=== PATIENT | female | born 1945 | race Caucasian/White ===

== ENCOUNTER 2016-05-06 09:06 | Emergency (ER) | payer OTHER ==
--- NOTE | 2016-05-06 11:42 | DIAGNOSTIC IMAGING REPORT ---
PROCEDURE: XR CHEST 2 VIEW INDICATION: COUGH TECHNIQUE: Two views. COMPARISON: None. FINDINGS: The cardiomediastinal contour and central vasculature are within normal limits. The lungs are clear without focal consolidation, pleural effusion, or pneumothorax. The visualized osseous structures are intact. IMPRESSION: 1. Normal chest.
--- NOTE | 2016-05-06 13:41 | DIAGNOSTIC IMAGING REPORT ---
PROCEDURE: CTA THORAX WITH CONTRAST INDICATION: HEMOPTYSIS, FATIGUE TECHNIQUE: 76 ml of Isovue 370 was injected intravenously and axial images were obtained of the chest with 3D sagittal and coronal MIP reconstructions. COMPARISON: CT abdomen 11/23/2013 and ultrasound 06/19/2014 FINDINGS: Normal opacification of the pulmonary arterial tree without filling defect. The central pulmonary arteries are normal caliber. Thoracic aorta is normal caliber with trace atherosclerotic calcification. The great vessels demonstrates normal branching pattern. Heart size is normal. No pericardial effusion. No adenopathy or mediastinal masses. The esophagus is normal in caliber without hiatal hernia. The airway is patent and branches normally. There is a very minor patchy ground-glass alveolar opacity right upper lobe. The left lateral herve fissural granuloma. Mild bibasilar atelectasis. No pleural effusions or pneumothorax. Osseous structures are intact. The images obtained of the upper abdomen demonstrate innumerable, tiny hypodensities throughout the liver, chronic. Coarse parenchymal right renal calcification and small bilateral renal cysts. IMPRESSION: 1. No pulmonary embolus. 2. Scattered, tiny, subtle alveolar opacities in the right upper lobe likely infectious or inflammatory, possibly accounting for the patient's hemoptysis. Lungs are otherwise fairly clear. 3. Chronic hepatic cystic structures. 4. Discussed with Dr. Goddard in the emergency room.
--- NOTE | 2016-05-06 14:25 | ED CLINICAL REPORT ---
Clinical Report - Physicians/[facility] [address] [place] [address] 05/06/2016 9:06 Patient: SAYRA TORRES Time Seen: 09:52. Arrived- By private vehicle. Historian- patient. HISTORY OF PRESENT ILLNESS Chief Complaint: COUGH. fatigue, hemoptysis. This started about 2 months ago (fatigue), hemoptysis (this morning) and is still present (a little better (hemoptysis)). The illness is described as moderate. The patient has had a cough. She has had moderate amounts of frankly bloody sputum. No difficulty breathing, chest discomfort or pain, fever or muscle aches. No chills, sore throat, hoarseness or nasal congestion or discharge. No sinus pressure, sinus drainage or ear pain. Additional history - No known contact with a sick individual. (Pt states she has felt deeply tired for the past couple of months. This morning, pt states she felt the sensation of fluid being in her throat. She coughed it up, and states she saw a "large amount" of blood.). Similar symptoms previously: None. Recent medical care: Not recently seen/assessed. REVIEW OF SYSTEMS No headache, eye discomfort, nausea, vomiting or diarrhea. No abdominal pain, hay fever, pedal edema, calf pain or difficulty with urination. No skin rash, enlarged lymph nodes or joint pain. All systems otherwise negative, except as recorded above. PAST HISTORY No h/o hypothyroidism. Problems: Ureterolithiasis. LNMP - Last Normal Menstrual Period. Tetanus Status. Immunizations. Additional Surgeries: Appendectomy. Hysterectomy. Laparotomy. Medications: None. Allergies: Penicillin. Sulfa Antibiotics. SOCIAL HISTORY Smoker- current status unknown. Occasional alcohol use. No drug use. ADDITIONAL NOTES The nursing notes have been reviewed. PHYSICAL EXAM Vital Signs: 05/06/2016 09:28 BP: 157/65. HR: 86. RR: 12. O2 saturation: 100%. Temp: 98 F. Pain level now: 0/10. Have been reviewed. Appearance: Alert. No acute distress. Eyes: Pupils equal, round and reactive to light. Eyes normal inspection. ENT: Nose normal. Pharynx normal. Uvula midline. Neck: Normal inspection. Neck supple. CVS: Normal heart rate and rhythm. Heart sounds normal. Pulses normal. Respiratory: No respiratory distress. Breath sounds normal. (Pt coughs up a mild amount of frankly bloody sputum.). Abdomen: Soft and nontender. Back: Normal inspection. Skin: Skin warm and dry. Normal skin color. No rash. Normal skin turgor. Extremities: Extremities exhibit normal ROM. No lower extremity edema. Neuro: Oriented X 3. No motor deficit. No sensory deficit. LABS, X-RAYS, AND EKG Chest X-ray: No acute disease. Normal lung markings present. Normal heart size. Mediastinum normal. Great vessels normal. Soft tissues normal. No infiltrate. No fracture. No bony lesion present. Views: PA and lateral. Technique: good. The X-rays were independently viewed by me, interpreted by the radiologist and contemporaneously by me and discussed with the radiologist. Prior films were not available for comparison. Chest CT: Lungs normal. Great vessels normal. Mediastinum normal. No fractures noted. Chest CT performed with contrast. The study was independently viewed by me, interpreted by the radiologist and contemporaneously by me and discussed with the radiologist. Prior studies were not available for comparison. Laboratory Tests: UA-Culture if indicated: (PARAM: 05/06/2016 09:30) ( [facility] 05/06/2016 11:06) IP Test Result Flag Units (Reference) URINE COLOR YELLOW URINE APPEARANCE CLEAR URINE GLUCOSE NEGATIVE (NEGATIVE) URINE BILIRUBIN NEGATIVE (NEGATIVE) URINE KETONE NEGATIVE (NEGATIVE) URINE SPECIFIC GRAVITY 1.025 (1.010-1.030) URINE PH 5.5 (5.0-8.0) URINE PROTEIN NEGATIVE (NEGATIVE) URINE UROBILINOGEN 0.2 EU/dL (0.2-1.0) URINE NITRITE NEGATIVE (NEGATIVE) URINE BLOOD 1+ (NEGATIVE) URINE LEUK ESTERASE NEGATIVE (NEGATIVE) CBC w Diff: (PARAM: 05/06/2016 10:40) ( [facility] 05/06/2016 10:53) Final results Test Result Flag Units (Reference) WHITE BLOOD COUNT 5.2 K/uL (4.5-11.5) RED BLOOD COUNT 4.37 M/uL (4.00-5.20) HEMOGLOBIN 14.0 gm/dL (12.0-16.0) HEMATOCRIT 41.3 % (36.0-46.0) MEAN CELL VOLUME 95 fL (80-100) MEAN CORPUSCULAR HGB 32 pg (26-34) MEAN CORPUSCULAR HGB CONC 34 g/dL (31-37) RED CELL DISTRIBUTION WIDTH 12.6 % (11.6-14.8) PLATELET COUNT 169 K/uL (150-400) NEUTROPHIL % 64.2 % (50-75) LYMPH % 27.3 % (25-40) MONO % 7.1 % (3-14) EOSINOPHIL % 1.0 % (0-4) BASOPHIL % 0.4 % (0-2) PT with INR: (PARAM: 05/06/2016 10:40) ( [facility] 05/06/2016 11:06) Final results Test Result Flag Units (Reference) INR 1.0 (0.8-1.2) Low Intensity Therapy: INR 1.5-2.0 PT range 18.5-23.1Mod.Intensity Therapy: INR 2.0-3.0 PT range 23.1-31.5High Intensity Therapy: INR 2.5-3.5 PT range 27.4-35.5High Intensity Therapy 2: INR 3.0-4.0 PT range 31.5-39.3 D-DIMER QUANTITATIVE 0.45 ug/mLFEU (0.27-0.52) The primary value of this quantitative assay relates toits negative predictive value (i.e. exclusion) of pulmonaryembolism/deep vein thrombosis/DIC.Elevated levels of d-dimer may also occur with:, age, cancer, inflammation, liver disease,post-op, infection, hematoma, coronary disease, peripheralarteriopathy, bleeding disorders and thrombolytic treatment.Results should be correlated with other clinical andradiological data.Testing Methodology: Latex Immunoassay BNP: (PARAM: 05/06/2016 10:40) ( [facility] 05/06/2016 11:13) Final results Test Result Flag Units (Reference) B-TYPE NATRIURETIC PEPTIDE 30.1 pg/ml (5-100) CMP: (PARAM: 05/06/2016 10:40) ( MsgRcvd 05/06/2016 11:23) Final results Test Result Flag Units (Reference) GLUCOSE 102 mg/dL (70-110) BUN 20 H mg/dL (7-18) CREATININE 0.8 mg/dL (0.6-1.3) Estimated GFR >60 mL/min Estimated GFR- >60 mL/min Note: Persistent reduction over 3 months in eGFR<60 mL/min/1.73 m2 defines CKD. Patients with eGFR values>=60 mL/min/1.73 m2 may also have CKD if evidence ofpersistent proteinuria. Additional information may be foundat www.kidney.org. SODIUM 146 H mmol/L (136-145) POTASSIUM 3.5 mmol/L (3.5-5.1) CHLORIDE 107 mmol/L (98-107) CARBON DIOXIDE 28 mmol/L (21-32) CALCIUM 8.8 mg/dL (8.5-10.1) TOTAL PROTEIN 6.7 g/dL (6.4-8.2) ALBUMIN 3.8 g/dL (3.3-5.0) BILIRUBIN, TOTAL 0.6 mg/dL (0.0-1.0) ALKALINE PHOSPHATASE 107 U/L (46-116) AST (SGOT) 20 U/L (15-37) ALT (SGPT) 26 U/L (12-78) THYROID STIMULATING HORMONE 4.679 H uIU/mL (0.30-3.74) Type & Screen: (PARAM: 05/06/2016 10:40) ( MsgRcvd 05/06/2016 11:47) Final results Test Result Flag Units (Reference) PATIENT BLOOD TYPE O Positive Above is a corrected result. Previously reported on ( MsgRcvd 05/06/2016 11:21) as: PATIENT BLOOD TYPE O Positive ANTIBODY SCREEN NEGATIVE . Pulse Oximetry: 05/06/2016 09:28 O2 saturation: 100%. (FIO2 - room air). Interpretation: normal. PROGRESS AND PROCEDURES Course of Care: PT was given a 1 L bolus of NS. She was worked up for her fatigue and hemoptysis, and was found to have an elevated TSH. Imaging of the chest, including CXR and CT, was unremarkable. I did d/w pt that the cause of her hemoptysis is not known; however, no emergent condition has been identified. Patient counseled in person regarding the patient's stable condition, test results, diagnosis and need for follow-up. Concerns were addressed. Old medical records reviewed. Disposition: Discharged. Condition: stable. CLINICAL IMPRESSION Minor hemoptysis Acquired hypothyroidism without goiter. No myxedema coma. INSTRUCTIONS Drink plenty of fluids. Warnings: Further evaluation is necessary. GENERAL WARNINGS: Return or contact your physician immediately if your condition worsens or changes unexpectedly, if not improving as expected, or if other problems arise. Prescription Medications: Synthroid 125 mcg: take 1 orally every 24 hours. Dispense thirty (30). No refills. Substitution is permissible. Follow-up: Follow up with your doctor. Call for the next available appointment. Reason for referral: Follow up low thyroid and coughing up blood. Understanding of the discharge instructions verbalized by patient. (Electronically signed by Nahomy Goddard MD 05/09/2016 10:19)
--- NOTE | 2016-05-06 14:25 | ED ORDER SUMMARY ---
..... Patient: SAYRA TORRES OrderSheet [facility] VisitID: [id number] [address] [place] [address] 71y, F Registration Date/Time: 05/06/2016 ORDER SHEET Weight: 58.9 kg (stated) Allergies: Penicillin, Sulfa Antibiotics GENERAL ORDERS: Chest 2V Urgent (09:52 05/06/2016 Kyara PACE) (Ack 9:55 Maxim) (12:24 MWinterer R.N.) CBC w Diff Urgent (10:17 05/06/2016 Kyara PACE) (Ack 10:26 Maxim) (10:45 MWinterer R.N.) CMP Urgent (10:05/06/2016 Kyara PACE) (Ack 10:26 Maxim) (10:45 MWinterer R.N.) PT with INR Urgent (10:05/06/2016 Kyara PACE) (Ack 10:26 Maxim) (10:45 MWinterer R.N.) BNP Urgent (10:17 05/06/2016 Kyara PACE) (Ack 10:26 Maxim) (10:45 MWinterer R.N.) D-Dimer Urgent (10:05/06/2016 Kyara PACE) (Ack 10:26 Maxim) (10:45 MWinterer R.N.) Type & Screen Urgent (10:05/06/2016 Kyara PACE) (Ack 10:26 Maxim) (10:45 MWinterer R.N.) TSH Urgent (10:05/06/2016 Kyara PACE) (Ack 10:26 Maxim) (10:45 MWinterer R.N.) UA-Culture if indicated Urgent (10:47 05/06/2016 MWinterer R.N. per protocol) (10:47 MWinterer R.N.) CTA Thorax w Cont (No) (N/A) Urgent (12:02 05/06/2016 Kyraa PACE) (Ack 12:35 Maxim) (13:05 MWinterer R.N.) MEDICATION ORDERS: IV FLUIDS: IV NS : initial bolus 1000 mL (1000 mL/hr), then none - (NOW) (10:16 05/06/2016 Kyara PACE) (Ack 10:26 MWinterer R.N.) (10:46 MWintercamron R.N.) ORDER SHEET NOTES: [Electronically signed by Khadra Faust R.N. (08:54 05/08/2016)] [Electronically signed by Nahomy Goddard MD (10:19 05/09/2016)] [Electronically locked/signed by Khadra Faust R.N. (08:54 05/08/2016)]
--- NOTE | 2016-05-06 14:25 | ED ORDER SUMMARY ---
..... Patient: SAYRA TORRES OrderSheet [facility] VisitID: [id number] [address] [place] [address] 71y, F Registration Date/Time: 05/06/2016 ORDER SHEET Weight: 58.9 kg (stated) Allergies: Penicillin, Sulfa Antibiotics GENERAL ORDERS: Chest 2V Urgent (09:52 05/06/2016 Kyara PACE) (Ack 9:55 Maxim) (12:24 MWinterer R.N.) CBC w Diff Urgent (10:17 05/06/2016 Kyara PACE) (Ack 10:26 Maxim) (10:45 MWinterer R.N.) CMP Urgent (10:05/06/2016 Kyara PACE) (Ack 10:26 Maxim) (10:45 MWinterer R.N.) PT with INR Urgent (10:05/06/2016 Kyara PACE) (Ack 10:26 Maxim) (10:45 MWinterer R.N.) BNP Urgent (10:17 05/06/2016 Kyara PACE) (Ack 10:26 Maxim) (10:45 MWinterer R.N.) D-Dimer Urgent (10:05/06/2016 Kyara PACE) (Ack 10:26 Maxim) (10:45 MWinterer R.N.) Type & Screen Urgent (10:05/06/2016 Kyara PACE) (Ack 10:26 Maxim) (10:45 MWinterer R.N.) TSH Urgent (10:05/06/2016 Kyara PACE) (Ack 10:26 Maxim) (10:45 MWinterer R.N.) UA-Culture if indicated Urgent (10:47 05/06/2016 MWinterer R.N. per protocol) (10:47 MWinterer R.N.) CTA Thorax w Cont (No) (N/A) Urgent (12:02 05/06/2016 Kyara PACE) (Ack 12:35 Maxim) (13:05 MWinterer R.N.) MEDICATION ORDERS: IV FLUIDS: IV NS : initial bolus 1000 mL (1000 mL/hr), then none - (NOW) (10:16 05/06/2016 Kyara PACE) (Ack 10:26 MWinterer R.N.) (10:46 MWintercamron R.N.) ORDER SHEET NOTES: [Electronically signed by Khadra Faust R.N. (08:54 05/08/2016)] [Electronically signed by Nahomy Goddard MD (10:19 05/09/2016)] [Electronically locked/signed by Khadra Faust R.N. (08:54 05/08/2016)]
--- NOTE | 2016-05-06 14:25 | ED NURSING NOTES ---
Clinical Report - Nurses [facility] [address] [place] [address] 05/06/2016 9:06 Patient: SAYRA TORRES TRIAGE Acuity: LEVEL 4. Chief Complaint: COUGH. Alert. No acute distress. SEPSIS SCREEN: Sepsis Screen. Negative (no infection suspected/documented). --09:32 Dorie Forrest R.N. 09:28 05/06/16. BP: 157/65. HR: 86. RR: 12. O2 saturation: 100% on room air. Temp: 98 F (oral). Pain level now: 0/10. --09:32 Dorie Forrest R.N. Weight: 58.9 kg stated. Height/Length: 64 inches Per Patient. BMI: 22.3. --09:31 Dorie Forrest R.N. Medications None. --09:29 Dorie Forrest R.N. Allergies Penicillin. --09:29 Dorie Forrest R.N. Sulfa Antibiotics. --09:29 Dorie Forrest R.N. History Arrived by private vehicle. Historian: patient. Unaccompanied. Primary physician (Eufemia). This started just prior to arrival. ( Pt reports she has been "really tired for a month." She states this am she coughed up blood.). PAST MEDICAL HX: Immunizations: status is unknown. The patient has had a hysterectomy. SOCIAL HX: Smoker- current status unknown. Occasional alcohol use. No drug use. FALL RISK ASSESSMENT: Fall risk assessment completed. No fall risk identified. NUTRITIONAL RISK ASSESSMENT: The nutritional risk assessment revealed no deficiencies. FUNCTIONAL ASSESSMENT: Functional assessment: no impairments noted. LEARNING NEEDS ASSESSMENT: The learning needs assessment revealed no barriers. SKIN INTEGRITY ASSESSMENT: Skin integrity risk assessment completed. No skin integrity risk identified. --09:32 Dorie Forrest R.N. PROBLEMS: Ureterolithiasis. LNMP - Last Normal Menstrual Period. Cellulitis. Tetanus Status. Animal Bite. Last Tetanus. Immunizations. --09:30 Dorie Forrest R.N. ADDITIONAL SURGERIES: Appendectomy. Hysterectomy. Laparotomy. --09:30 Dorie Forrest R.N. Assessment GENERAL / NEURO / PSYCH: Alert. Oriented X 4. Appears in no acute distress. Patient appears calm and cooperative. RESPIRATORY: Respirations not labored. CVS: Capillary refill less than 2 seconds. GI / : Abdomen soft and nontender. SKIN: Mucous membranes are pink. Skin is warm and dry. --09:32 Dorie Forrest R.N. Interventions ID band on patient. To treatment room. --09:32 Dorie Forrest R.N. NURSING PROGRESS NOTES 09:33 05/06/16. Patient gowned. Two patient identifiers checked. Call light placed in reach. Side rails up x 1. Bed placed in lowest position. Brakes of bed on. Patient ready for evaluation- chart flagged and ED physician notified. --09:33 Dorie Forrest R.N. 10:45 05/06/2016 Site #1 started via IV in the left upper arm with an 20g angiocath, with aseptic technique and good blood return; one attempt. Blood drawn: rainbow set. Labeled in the presence of the patient and sent to the lab. --10:45 Dorie Forrest R.N. 10:46 05/06/2016 Started bag #1 1000 mL IV Fluids IV NS (Saline); at 999 mL/hr over 1 hour(s) via site #1 via IV pump. Allergies verified and confirmed 5 rights. IV patency established. IV site checked: no pain, redness, or swelling. IV flushed thoroughly pre- and post-medication administration. --10:46 Dorie Forrest R.N. 11:48 05/06/2016 IV Fluids IV NS Discontinued: bag #1 completed. Total amount infused: 1000 mL. IV patency established IV site checked: no pain, redness, or swelling IV flushed thoroughly. --11:48 Janette Dubois R.N. 13:07 05/06/16. BP: 127/74. HR: 84. RR: 16. O2 saturation: 99% on room air. Pain level now: 0/10. --13:07 Winterer, Dorie, R.N. DISPOSITION / DISCHARGE Departure time: 14:38 May 06 2016. Condition at departure: improved and stable. No learning barriers present. Reviewed medication(s) side effects, precautions, dosing and course information. Prescription(s) given to the patient. Patient verbalized understanding. Written instructions provided in Azerbaijani. The patient was discharged by the physician. She was discharged home. She left the Emergency Department ambulatory and via private vehicle. Patient driving. --14:39 Dorie Forrest R.N. 14:38 05/06/16. BP: 114/72. HR: 78. RR: 12. O2 saturation: 100%. Pain level now: 0/10. --14:39 Dorie Forrest R.N. Locked/Released at 05/08/2016 8:54 by Khadra Faust R.N.
--- NOTE | 2016-05-09 10:19 | ED MAR SUMMARY ---
..... Medication Administration Record [facility] [address] [place] [address] Patient: SAYRA TORRES Visit ID: [id number] 71y, F Weight: 58.9 kg Height/Length: 64 in BMI: 22.3 ALLERGIES: Sulfa Antibiotics, Penicillin Start 10:46 05/06/2016 Dorie Forrest RRia, Stop 11:48 05/06/2016 Janette Dubois RRia Medication Administered: IV NS (SALINE), Dose: IV Fluids over 1 hour(s), Rate: 999 mL/hr, Dispensed: 1000 mL bag, Site: #1 left upper arm. Medication Ordered: IV NS : initial bolus 1000 mL (1000 mL/hr), then none - (NOW).
--- NOTE | 2016-05-09 10:19 | ED MED RECONCILIATION SUMMARY ---
Patient: SAYRA TORRES Medication Reconciliation Report [facility] VisitID: [id number] [address] [place] [address] 71y, F Registration Date/Time: 05/06/2016 Weight: 58.9 kg Height/Length: 64 in. BMI: 22.3 ALLERGIES: Penicillin, Sulfa Antibiotics The patient's Home Medications are listed below: NONE. The source(s) of the original Home Medication information: Not obtained. The following Medications were given to the patient in the Emergency Department: IV NS IV Fluids bolus 0, then 999 mL/hr, administered: 05/06/2016 10:46:00 AM The following Medications were prescribed to the patient: Synthroid 125 mcg: take 1 orally every 24 hours. Dispense thirty (30). No refills. Substitution is permissible. -- Nahomy Goddard MD
--- NOTE | 2016-05-09 10:19 | ED DISCHARGE INSTRUCTIONS ---
Patient: SAYRA TORRES General Instructions [facility] VisitID: [id number] [address] [place] [address] 71y, F Registration Date/Time: 05/06/2016 Minor hemoptysis Acquired hypothyroidism without goiter. No myxedema coma. INSTRUCTIONS Drink plenty of fluids. Warnings: Further evaluation is necessary. GENERAL WARNINGS: Return or contact your physician immediately if your condition worsens or changes unexpectedly, if not improving as expected, or if other problems arise. Prescription Medications: Synthroid 125 mcg: take 1 orally every 24 hours. Dispense thirty (30). No refills. Substitution is permissible. Follow-up: Follow up with your doctor. Call for the next available appointment. Reason for referral: Follow up low thyroid and coughing up blood. Understanding of the discharge instructions verbalized by patient. ADDITIONAL INFORMATION Hemoptysis Hemoptysis is the medical term for "coughing up blood". There are many causes for this including minor illnesses such as bronchitis. Hemoptysis can also be an early sign of more serious illnesses such as a pneumonia, blood clot in the lung, cancer, tuberculosis and pneumonia. Less common causes of hemoptysis can be hard to diagnose in an emergency department or a clinic. Therefore, further testing will be needed if the symptoms continue. Home Care: Avoid exposure to cigarette smoke. Smoke irritates the bronchial passages. Unless you are taking daily aspirin to prevent stroke or heart attack, avoid aspirin and products that contain aspirin. Aspirin affects the clotting system and may make hemoptysis worse. If you have a lung infection, extra fluid will help loosen secretions in the lungs. Qvzy-lxa-kpemghi cough medicines which contain "dextromethorphan" (such as Robitussin DM) may help reduce coughing. If you were prescribed an antibiotic, take it until it is all gone. Take it even if you are feeling better after only a few days. Follow Up with your doctor or as advised if the bloody cough continues for more than 24 hours. Get Prompt Medical Attention if any of the following occur: Coughing up more than 1 cup of blood within 24 hours Fever over 100.4F (38.0C) for more than three days Trouble breathing, wheezing or pain with breathing Chest pain or chest pressure Feeling very weak or fainting Hypothyroidism You have been diagnosed with hypothyroidism. This means your thyroid gland is not producing enough thyroid hormone. This hormone is important to body growth and metabolism. If you don't have enough, many body processes slow down, causing mental and physical sluggishness. A variety of other symptoms may occur and vary from mild to severe. The most severe form of this illness is called myxedema. Signs Of Hyperthyroidism (too much thyroid hormone, which can be a side effect of treatment for low thyroid): Restlessness, nervousness Increased appetite with weight loss Excess sweating Palpitations or irregular heartbeat Feeling overheated Signs Of Hypothyroidism (too little thyroid hormone): Fatigue or sluggishness Difficulty concentrating or thinking clearly; forgetfulness Dry skin, hair loss Depression Unexpected weight gain Feeling cold, or cold hands and/or feet Home Care: Take your medicine exactly as directed at the same time every day. Don't take thyroid pills with soy milk since this interferes with absorption. After taking your thyroid medicine: Wait 4 hours before eating or drinking anything that contains soy. Wait 4 hours before taking iron supplements, antacids that contain either calcium or aluminum hydroxide, or calcium supplements (regular amounts of cows milk are probably okay). Do not stop treatment on your own. If you do, your symptoms will return. Eat a high-fiber, low-calorie diet to relieve constipation and maintain a healthy weight. Get regular exercise. Talk to your doctor about an exercise program that is right for you. Follow Up with your doctor or as advised by our staff. Your thyroid level will need to be monitored for the rest of your life. During your routine visits, tell your doctor about any symptoms such as the ones listed below. Get Prompt Medical Attention if any of the following occur: Extreme fatigue Puffy hands, face, or feet Chest pain or trouble breathing Palpitations or irregular heartbeat Confusion or loss of consciousness You have been given the following additional information: Hemoptysis Hypothyroidism (Electronically signed by Nahomy Goddard MD 05/09/2016 10:19)
--- NOTE | 2016-05-09 10:19 | ED MAR SUMMARY ---
..... Medication Administration Record [facility] [address] [place] [address] Patient: SAYRA TORRES Visit ID: [id number] 71y, F Weight: 58.9 kg Height/Length: 64 in BMI: 22.3 ALLERGIES: Sulfa Antibiotics, Penicillin Start 10:46 05/06/2016 Dorie Forrest RRia, Stop 11:48 05/06/2016 Janette Dubois RRia Medication Administered: IV NS (SALINE), Dose: IV Fluids over 1 hour(s), Rate: 999 mL/hr, Dispensed: 1000 mL bag, Site: #1 left upper arm. Medication Ordered: IV NS : initial bolus 1000 mL (1000 mL/hr), then none - (NOW).
--- NOTE | 2016-05-09 10:19 | ED MED RECONCILIATION SUMMARY ---
Patient: SAYRA TORRES Medication Reconciliation Report [facility] VisitID: [id number] [address] [place] [address] 71y, F Registration Date/Time: 05/06/2016 Weight: 58.9 kg Height/Length: 64 in. BMI: 22.3 ALLERGIES: Penicillin, Sulfa Antibiotics The patient's Home Medications are listed below: NONE. The source(s) of the original Home Medication information: Not obtained. The following Medications were given to the patient in the Emergency Department: IV NS IV Fluids bolus 0, then 999 mL/hr, administered: 05/06/2016 10:46:00 AM The following Medications were prescribed to the patient: Synthroid 125 mcg: take 1 orally every 24 hours. Dispense thirty (30). No refills. Substitution is permissible. -- Nahomy Goddard MD
== END 2016-05-06 14:41 | disposition home or self-care (01) ==
LOC: ED SRH 09:06
DX: R04.2 Hemoptysis (principal); E03.9 Hypothyroidism, unspecified; Z88.0 Allergy status to penicillin; Z88.2 Allergy status to sulfonamides
CPT/HCPCS: 90001; 90004; 90100; 90155; 91004; 91320; 91556; 93140; 94060; 95059